=== PATIENT | female | born 1970 | race Caucasian/White ===

== ENCOUNTER 2022-06-18 00:02 | Emergency (ER) | payer MEDICAID ==
[~2022-06-18] VITALS: Ht 152.4 cm; Wt 56.8 kg
[2022-06-18 01:07] VITALS: BP 186/120
[2022-06-18] MEDS ORDERED: ondansetron/PF 4mg/2ml inj IV ONE ×3 (01:55→08:40)
[2022-06-18 03:56] LABS: CLARITY,URINE CLEAR (Clear); COLOR,URINE YELLOW (Yellow); GLUCOSE, URINE NEGATIVE (Neg); KETONES,URINE 15 mg/dl (Neg); LEUKOCYTE ESTERASE ,URINE NEGATIVE (Neg); NITRITES, URINE NEGATIVE (Neg); OCCULT BLOOD,URINE NEGATIVE (Neg); PH,URINE >=9.0 (4.8-8.0); PROTEIN,URINE 30 mg/dl (Neg); UROBILINOGEN,URINE 0.2 E.U/dL (0.2-1.0)
[2022-06-18 03:57] LABS: URINE HCG NEGATIVE (NEG)
[2022-06-18 04:04] LABS: UA COLLECTION TYPE CLN CATCH MIDSTREAM
[2022-06-18 04:05] LABS: WBC,URINE 0-4 /HPF (0-4)
[2022-06-18 04:06] LABS: BACTERIA,URINE FEW /HPF (Neg); MUCUS STRANDS FEW /LPF (Neg); RBC,URINE 0-2 /HPF (0-2); SQUAMOUS EPITHELIAL CELL,UR MANY /LPF (FEW)
[2022-06-18 04:07] LABS: BASOPHILS % (AUTO) 0.4 % (0-1); EOSINOPHILS % (AUTO) 0.1 % (0-6); HEMATOCRIT 48.6 % (35.0-45.0); LYMPHOCYTES # (AUTO) 1.5 X10'3 (1.1-4.8); LYMPHOCYTES % (AUTO) 11.3 % (21-51); MEAN CORPUSCULAR HEMOGLOBIN 33.1 PG (27.0-31.0); MEAN CORPUSCULAR VOLUME 100.2 FL (78-98); MEAN PLATELET VOLUME 8.8 FL (7.4-10.4); MONOCYTES # (AUTO) 0.5 X10'3 (0-0.9); MONOCYTES % (AUTO) 3.5 % (2-12); NEUTROPHILS # (AUTO) 10.9 X10'3 (1.8-7.7); NEUTROPHILS % (AUTO) 84.7 % (42-75); PLATELET COUNT 201 X10'3 (140-440); RED BLOOD COUNT 4.85 X10'6 (4.20-5.60); RED CELL DISTRIBUTION WIDTH 14.2 % (11.5-14.5); WHITE BLOOD COUNT 12.9 X10'3 (4.5-11.0)
[2022-06-18 04:15] LABS: ALANINE AMINOTRANSFERASE 22 U/L (12-78); ALBUMIN 3.9 G/DL (3.4-5.0); ALKALINE PHOSPHATASE 81 IU/L (46-116); ANION GAP 13 (8-16); ASPARTATE AMINO TRANSFERASE 22 U/L (10-37); BILIRUBIN,TOTAL 0.3 MG/DL (0.1-1.0); BLOOD UREA NITROGEN 11 MG/DL (7-18); BUN/CREATININE RATIO 11.7 (6.6-38.0); CALCIUM 9.3 MG/DL (8.5-10.1); CHLORIDE 100 MMOL/L (99-107); CREATININE 0.94 MG/DL (0.40-0.90); GLUCOSE 146 MG/DL (70-104); LIPASE 91 U/L (73-393); POTASSIUM 4.1 MMOL/L (3.5-5.1); SODIUM 136 MMOL/L (135-145); TOTAL CARBON DIOXIDE 23.4 MMOL/L (24-32); TOTAL PROTEIN 7.7 G/DL (6.4-8.2); eGFR 62 ML/MIN
[2022-06-18] MEDS ORDERED: morphine 4 MG/ML inj SYRINge IV ONE (04:30)
[2022-06-18] MEDS ORDERED: normal saline 1000ML IV soln IVB ONE (04:30)
[2022-06-18] MEDS ORDERED: famotidine/PF 10 mg/ml inj IV ONE (05:00)
[2022-06-18] MEDS ORDERED: mag hydrox/Alum hydrox/simeth 30ml oral suspension PO ONE (05:00)
[2022-06-18] MEDS ORDERED: iohexol 300mg/ml 100ml inj. ONE (05:13)
[2022-06-18] MEDS ORDERED: proCHLORperazine 10 MG/2 ml inj IV ONE (08:40)
[2022-06-18] MEDS ORDERED: bisacodyl 5mg tablet.DR PO ONE (08:40)
[2022-06-18] MEDS ORDERED: ONDA8TAB13 PO (09:35)
== END 2022-06-18 11:05 | disposition home or self-care (01) ==
LOC: ER 00:03
DX: K29.20 Alcoholic gastritis without bleeding (principal); R11.2 Nausea with vomiting, unspecified; R10.13 Epigastric pain; F17.200 Nicotine dependence, unspecified, uncomplicated; F12.90 Cannabis use, unspecified, uncomplicated; Z72.89 Other problems related to lifestyle; Z88.0 Allergy status to penicillin; Z88.6 Allergy status to analgesic agent; Z88.5 Allergy status to narcotic agent; Z79.899 Other long term (current) drug therapy
CPT/HCPCS: 36415; 74177; 80053; 81001; 81025; 83690; 85025; 96361; 96374; 96375; 96376; 99285; J0780; J2405; J3490; J7030; Q9967